=== PATIENT | male | born 1945 | race Caucasian/White ===

== ENCOUNTER 2016-07-14 13:42 | Outpatient (CLI) ==
[2015-09-23 12:33] VITALS: BMI 24.3
[2016-07-14 15:47] LABS: PROTHROMBIN TIME 13.7 SEC (9.3-11.0)
== END 2016-07-14 13:43 | disposition home or self-care (01) ==
LOC: LAB 13:42
PROVIDERS: ATTEND Emergency Medicine
DX: Z51.81 Encounter for therapeutic drug level monitoring (principal); Z79.899 Other long term (current) drug therapy
CPT/HCPCS: 36415; 85610

== ENCOUNTER 2016-12-12 11:11 | Outpatient (CLI) ==
[2015-09-23 12:33] VITALS: BMI 24.3
[2016-12-12 11:37] LABS: PROTHROMBIN TIME 12.3 SEC (9.3-11.0)
== END 2016-12-12 11:12 | disposition home or self-care (01) ==
LOC: LAB 11:11
PROVIDERS: ATTEND Internal Medicine
DX: Z51.81 Encounter for therapeutic drug level monitoring (principal); Z79.899 Other long term (current) drug therapy
CPT/HCPCS: 36415; 85610

== ENCOUNTER → 2016-12-30 | Outpatient (CLI) ==
[2015-09-23 12:33] VITALS: BMI 24.3
== END ==
LOC: LAB 13:10
PROVIDERS: ATTEND Internal Medicine
DX: E11.9 Type 2 diabetes mellitus without complications (principal); I10 Essential (primary) hypertension; E78.5 Hyperlipidemia, unspecified; M19.90 Unspecified osteoarthritis, unspecified site; I82.409 Acute embolism and thrombosis of unspecified deep veins of unspecified lower extremity

== ENCOUNTER 2017-02-10 13:21 | Outpatient (CLI) ==
[2015-09-23 12:33] VITALS: BMI 24.3
[2017-02-10 14:21] LABS: PROTHROMBIN TIME 12.9 SEC (9.3-11.0)
== END 2017-02-10 13:22 | disposition home or self-care (01) ==
LOC: LAB 13:21
PROVIDERS: ATTEND Internal Medicine
DX: I82.409 Acute embolism and thrombosis of unspecified deep veins of unspecified lower extremity (principal)
CPT/HCPCS: 36415; 85610

== ENCOUNTER 2017-04-24 10:22 | Outpatient (CLI) ==
[2015-09-23 12:33] VITALS: BMI 24.3
[2017-04-24 10:41] LABS: BASOPHILS # (AUTO) 0.1 K/uL (0-0.2); EOSINOPHILS # (AUTO) 0.2 K/ul (0.0-0.7); HEMATOCRIT 44.1 % (42.0-52.0); HEMOGLOBIN 14.7 g/dl (14.0-18.0); IMMATURE GRANULOCYTE % (AUTO) 0.5 % (0.0-5.0); LYMPHOCYTES # (AUTO) 1.8 K/uL (0.60-3.4); LYMPHOCYTES % (AUTO) 24.9 (10.0-50.0); MEAN CORPUSCULAR HEMOGLOBIN 29.6 pg (27.0-31.0); MEAN CORPUSCULAR HGB CONC 33.3 (31.8-35.4); MEAN CORPUSCULAR VOLUME 88.7 fl (80.0-94.0); MONOCYTES # (AUTO) 0.5 K/uL (0.4-2.0); MONOCYTES % (AUTO) 6.3 (0-10); NEUTROPHILS # (AUTO) 4.8 K/ul (2.0-6.9); NEUTROPHILS % (AUTO) 65.3; PLATELET COUNT 168 10^3/uL (140-440); RED BLOOD COUNT 4.97 10^6/ul (4.70-6.10); WHITE BLOOD COUNT 7.36 K/ul (4.2-10.2)
[2017-04-24 10:57] LABS: PROTHROMBIN TIME 12.5 SEC (9.3-11.0)
[2017-04-24 11:18] LABS: ALBUMIN/GLOBULIN RATIO 0.98; ANION GAP 14.5; BILIRUBIN,TOTAL 0.59 mg/dL (0.00-1.20); BUN/CREATININE RATIO 17.69; CALCIUM 10.4 mg/dL (8.2-10.2); CHOL/HDL RATIO 5.3 (4.5-6.4); CREATININE 1.3 mg/dL (0.60-1.10); POTASSIUM 4.5 mmol/L (3.5-5.1); TOTAL PROTEIN 8.1 g/dL (5.8-8.1)
== END 2017-04-24 10:23 | disposition home or self-care (01) ==
LOC: LAB 10:22
PROVIDERS: ATTEND Internal Medicine
DX: Z51.81 Encounter for therapeutic drug level monitoring (principal); Z79.01 Long term (current) use of anticoagulants; Z79.899 Other long term (current) drug therapy
CPT/HCPCS: 36415; 80053; 80061; 83036; 84443; 85025; 85610

== ENCOUNTER 2017-05-09 13:54 | Outpatient (CLI) ==
[2015-09-23 12:33] VITALS: BMI 24.3
[2017-05-09 14:17] LABS: PROTHROMBIN TIME 13.3 SEC (9.3-11.0)
== END 2017-05-09 13:55 | disposition home or self-care (01) ==
LOC: LAB 13:54
PROVIDERS: ATTEND Internal Medicine
DX: I82.409 Acute embolism and thrombosis of unspecified deep veins of unspecified lower extremity (principal)
CPT/HCPCS: 36415; 85610

== ENCOUNTER 2017-06-23 13:48 | Outpatient (CLI) | payer OTHER ==
[2015-09-23 12:33] VITALS: BMI 24.3
== END 2017-06-23 13:49 | disposition home or self-care (01) ==
LOC: LAB 13:48
PROVIDERS: ATTEND Internal Medicine
DX: I82.409 Acute embolism and thrombosis of unspecified deep veins of unspecified lower extremity (principal)
CPT/HCPCS: 36415; 85610

== ENCOUNTER 2017-06-27 15:00 | Outpatient (CLI) ==
[2015-09-23 12:33] VITALS: BMI 24.3
== END 2017-06-27 15:01 | disposition home or self-care (01) ==
LOC: LAB 15:00
PROVIDERS: ATTEND Internal Medicine
DX: I82.409 Acute embolism and thrombosis of unspecified deep veins of unspecified lower extremity (principal)
CPT/HCPCS: 36415; 85610

== ENCOUNTER 2017-08-24 14:08 | Outpatient (CLI) ==
[2015-09-23 12:33] VITALS: BMI 24.3
== END 2017-08-24 14:09 | disposition home or self-care (01) ==
LOC: LAB 14:08
PROVIDERS: ATTEND Internal Medicine
DX: Z51.81 Encounter for therapeutic drug level monitoring (principal); Z79.01 Long term (current) use of anticoagulants
CPT/HCPCS: 36415; 85610

== ENCOUNTER 2017-09-22 11:20 | Outpatient (CLI) ==
[2015-09-23 12:33] VITALS: BMI 24.3
== END 2017-09-22 11:21 | disposition home or self-care (01) ==
LOC: LAB 11:20
PROVIDERS: ATTEND Internal Medicine
DX: Z51.81 Encounter for therapeutic drug level monitoring (principal); Z79.01 Long term (current) use of anticoagulants; E11.9 Type 2 diabetes mellitus without complications; I10 Essential (primary) hypertension; J44.9 Chronic obstructive pulmonary disease, unspecified; Z79.899 Other long term (current) drug therapy
CPT/HCPCS: 36415; 80053; 80061; 83036; 84443; 85025; 85610

== ENCOUNTER 2017-10-27 09:25 | Outpatient (CLI) | payer OTHER ==
[2015-09-23 12:33] VITALS: BMI 24.3
== END 2017-10-27 09:26 | disposition home or self-care (01) ==
LOC: LAB 09:25
PROVIDERS: ATTEND Internal Medicine
DX: Z51.81 Encounter for therapeutic drug level monitoring (principal); Z79.01 Long term (current) use of anticoagulants
CPT/HCPCS: 36415; 85610

== ENCOUNTER 2017-11-13 13:26 | Outpatient (CLI) | payer OTHER ==
[2015-09-23 12:33] VITALS: BMI 24.3
--- NOTE | 2017-11-13 14:19 | DI ---
EXAM: Chest two view, frontal and lateral views. HISTORY: Cough. COMPARISON: 04/08/2016. FINDINGS: Heart size is normal. There is no vascular congestion. Apical scarring and emphysematous changes are stable. There is a 1.8 cm nodular density on the second PA image projecting over the an terior second rib which is not seen on the initial PA image. No consolidation, pleural effusion or p neumothorax identified. No acute osseous abnormality detected. Clips seen along the midline of the upper abdomen. IMPRESSION: 1. Right upper lung nodular density which could be artifactual. Follow-up radiographs in 4 weeks re commended for reassessment. 2. Stable emphysema and apical scarring.
== END 2017-11-13 13:27 | disposition home or self-care (01) ==
LOC: RAD 13:26
PROVIDERS: ATTEND Internal Medicine
DX: R05 Cough (principal); F17.210 Nicotine dependence, cigarettes, uncomplicated

== ENCOUNTER 2017-12-29 14:08 | Outpatient (CLI) | payer OTHER ==
[2015-09-23 12:33] VITALS: BMI 24.3
== END 2017-12-29 14:09 | disposition home or self-care (01) ==
LOC: LAB 14:08
PROVIDERS: ATTEND Internal Medicine
DX: Z51.81 Encounter for therapeutic drug level monitoring (principal); Z79.01 Long term (current) use of anticoagulants
CPT/HCPCS: 36415; 85610

== ENCOUNTER 2018-03-16 14:34 | Outpatient (CLI) | payer OTHER ==
[2015-09-23 12:33] VITALS: BMI 24.3
== END 2018-03-16 14:35 | disposition home or self-care (01) ==
LOC: LAB 14:34
PROVIDERS: ATTEND Internal Medicine
DX: Z51.81 Encounter for therapeutic drug level monitoring (principal); Z79.01 Long term (current) use of anticoagulants; E78.5 Hyperlipidemia, unspecified; Z12.5 Encounter for screening for malignant neoplasm of prostate; Z79.899 Other long term (current) drug therapy; I10 Essential (primary) hypertension; E11.9 Type 2 diabetes mellitus without complications
CPT/HCPCS: 36415; 80053; 80061; 80162; 83036; 84439; 84443; 85025; 85610

== ENCOUNTER 2018-03-21 10:39 | Outpatient (CLI) ==
[2015-09-23 12:33] VITALS: BMI 24.3
== END 2018-03-21 10:40 | disposition home or self-care (01) ==
LOC: LAB 10:39
PROVIDERS: ATTEND Internal Medicine
DX: E87.5 Hyperkalemia (principal)
CPT/HCPCS: 36415; 80053

== ENCOUNTER 2018-06-22 13:47 | Outpatient (CLI) ==
[2015-09-23 12:33] VITALS: BMI 24.3
== END 2018-06-22 13:48 | disposition home or self-care (01) ==
LOC: LAB 13:47
PROVIDERS: ATTEND Internal Medicine
DX: M10.9 Gout, unspecified (principal); Z79.899 Other long term (current) drug therapy
CPT/HCPCS: 36415; 80053; 84550; 85025

== ENCOUNTER 2018-07-11 13:17 | Outpatient (CLI) | payer OTHER ==
[2015-09-23 12:33] VITALS: BMI 24.3
== END 2018-07-11 13:18 | disposition home or self-care (01) ==
LOC: LAB 13:17
PROVIDERS: ATTEND Internal Medicine
DX: Z79.01 Long term (current) use of anticoagulants (principal); Z86.718 Personal history of other venous thrombosis and embolism
CPT/HCPCS: 36415; 85610

== ENCOUNTER 2018-08-23 13:13 | Outpatient (CLI) | payer OTHER ==
[2015-09-23 12:33] VITALS: BMI 24.3
== END 2018-08-23 13:14 | disposition home or self-care (01) ==
LOC: LAB 13:13
PROVIDERS: ATTEND Internal Medicine
DX: Z51.81 Encounter for therapeutic drug level monitoring (principal); Z86.718 Personal history of other venous thrombosis and embolism; Z79.01 Long term (current) use of anticoagulants
CPT/HCPCS: 36415; 85610

== ENCOUNTER 2018-10-22 19:43 | Emergency (ER) ==
[2018-10-22 19:50] VITALS: BP 187/74; TEMP 98.1; BMI 21.9
[2018-10-22] MEDS ORDERED: LIDOCAINE HCL 1% SDV SUBCUT STA (19:52)
--- NOTE | 2018-10-22 20:23 | ED.PDOC ---
General ED Provider: Dr. KAVEH SHAH-ER Chief Complaint: Fall Stated Complaint: i fell on some steps---i cut my leg Time Seen by Physician: 20:21 Mode of Arrival: Walk-In Information Source: Patient Exam Limitations: No limitations Primary Care Provider: LAUREN DELEON Nursing and Triage Documentation Reviewed and Agree: Yes Does patient meet sepsis criteria?: No System Inflammatory Response Syndrome: Not Applicable Sepsis Protocol: For patient's 13 years and over: Temp is 96.8 and below OR 101 and greater Pulse >90 BPM Resp >20/minute Acutely Altered Mental Status Are patient's symptoms suggestive of a new infection, such as: -Pneumonia -Skin, Soft Tissue -Endocarditis -UTI -Bone, Joint Infection -Implantable Device -Acute Abdominal Infection -Wound Infection -Meningitis -Blood Stream Catheter Infection -Unknown Skin Complaint Exam - Laceration/Lower Ext. Complaint/Exam Location of Injury: Left, Leg Mechanism of Injury: Laceration Onset/Duration: 30 min Symptoms Are: Still present Initial Severity: Mild Current Severity: Mild Aggravating: Movement Alleviating: Compression Associated Signs and Symptoms: Denies: Fever, Chills, Erythema, Numbness, Tingling Related History: Reports: Anticoagulant use Differential Diagnoses: Laceration Review of Systems - Review Of Systems Constitutional: Reports: No symptoms Eyes: Reports: No symptoms Ears, Nose, Mouth, Throat: Reports: No symptoms Respiratory: Reports: No symptoms Cardiac: Reports: No symptoms GI: Reports: No symptoms : Reports: No symptoms Musculoskeletal: Reports: No symptoms Skin: Reports: No symptoms Neurological: Reports: No symptoms Endocrine: Reports: No symptoms Hematologic/Lymphatic: Reports: No symptoms All Other Systems: Reviewed and Negative Past Medical History - Past Medical History Previously Healthy: No Endocrine: Reports: DM 2, Dyslipidemia Cardiovascular: Reports: CAD Respiratory: Reports: None Hematological: Reports: None Gastrointestinal: Reports: None Genitourinary: Reports: None Neuro/Psych: Reports: None Musculoskeletal: Reports: None Cancer: Reports: None - Surgical History General Surgical History: Reports: Other (AAA) - Family History Family History: Reports: Unknown - Social History Smoking Status: Current every day smoker, Heavy tobacco smoker Hx Substance Use: No Alcohol Screening: None - Immunizations Tetanus Shot up to Date: Yes Physical Exam - Physical Exam Appearance: Well-appearing, No pain distress, Well-nourished Pain Distress: Mild Eyes: STEPHANIE, EOMI, Conjunctiva clear ENT: Ears normal, Nose normal, Oropharynx normal Neck: Supple Respiratory: Airway patent, Breath sounds clear, Breath sounds equal, Respirations nonlabored Cardiovascular: RRR, Pulses normal, No rub, No murmur GI/: Soft, Nontender, No masses, Bowel sounds normal, No Organomegaly Musculoskeletal: Normal strength, ROM intact, No edema, No calf tenderness Skin: Warm, Dry, Normal color Neurological: Sensation intact, Motor intact, Reflexes intact, Cranial nerves intact, Alert, Oriented Psychiatric: Affect appropriate, Mood appropriate Interpretation - Radiology Interpretation Radiology Interpretation By: ED Physician Radiology Results: Negative Exam Interpreted: Other Procedures - Laceration/Wound Repair No standard instances Wound Description: Linear Wound Length (cm): 4cm laceration left leg below the knee Wound Explored: Clean Wound Irrigated: Yes Wound Prep: Betadine, Scrub Anesthesia: Lidocaine Wound Repaired With: Aure Number of Aure: 9 Layer Closure?: No Sterile Dressing Applied?: Yes Splint Applied?: No Sling Applied?: No Critical Care Note - Critical Care Note Total Time (mins): 0 Course - Course Orders, Labs, Meds: Orders Category Date Time Status Lidocaine HCl/Pf [Lidocaine HCl 1% Sdv] MEDS 10/22/18 19:52 Discontinued 5 ml SUBCUT ONCE STA TIBIA/FIBULA, LEFT 2 VIEWS Stat RADS 10/22/18 19:52 Taken Medications Discontinued Medications Generic Name Dose Route Start Last Admin Trade Name Sundayq PRN Reason Stop Dose Admin Lidocaine HCl 5 ml 10/22/18 19:52 10/22/18 20:18 Lidocaine Hcl 1% Sdv SUBCUT 10/22/18 19:53 5 ml ONCE STA Administration Vital Signs: Temp Pulse Resp BP Pulse Ox 10/22/18 19:44 98.1 F 90 18 187/74 H 94 L Departure - Departure Time of Disposition: 20:23 Disposition: HOME SELF-CARE Discharge Problem: Laceration of leg Qualifiers: Encounter type: initial encounter Laterality: left Qualified Code(s): S81.812A - Laceration without foreign body, left lower leg, initial encounter Instructions: Laceration (ED), Staple Care (ED) Condition: Good Pt referred to PMD for follow-up: Yes IPMP verified?: No Additional Instructions: keep clean and dry---sutures out in 7 days---call if any signs of infection Allergies/Adverse Reactions: Allergies No Known Allergies Allergy (Verified 10/22/18 19:47) Home Medications: Ambulatory Orders Digoxin 0.25 mg PO MOTUWETHFRSA 10/14/13 Gemfibrozil 600 mg PO BID 10/14/13 Glimepiride [Amaryl] 4 mg PO DAILY 10/14/13 Metformin HCl 1,000 mg BID 10/14/13 Pravastatin Sodium [Pravachol] 40 mg PO DAILY 10/14/13 Warfarin Sodium [Coumadin] 5 mg PO DAILY 10/14/13 Sitagliptin Phosphate [Januvia] 50 mg PO DAILY 09/23/15 Disposition Discussed With: Patient
--- NOTE | 2018-10-22 20:48 | DI ---
EXAM: Two views of the left tibia-fibula COMPARISON: None HISTORY: Trauma and pain FINDINGS: There is no acute fracture or dislocation. Alignment is anatomic. There are vascular diane cifications. Joint spaces are well preserved. There are no unexpected radiodensities. There is no s ignificant degenerative change. IMPRESSION: No acute osseous abnormality
== END 2018-10-22 20:34 | disposition home or self-care (01) ==
LOC: ED 19:43
DX: S81.812A Laceration without foreign body, left lower leg, initial encounter (principal); W10.9XXA Fall (on) (from) unspecified stairs and steps, initial encounter; F17.210 Nicotine dependence, cigarettes, uncomplicated
CPT/HCPCS: 99283

== ENCOUNTER 2018-10-30 15:08 | Inpatient (IN) ==
[2018-10-30] MEDS ORDERED: VISTARIL INJ IM PRN (15:29)
[2018-10-30] MEDS ORDERED: NITROSTAT SL PRN (15:29)
[2018-10-30] MEDS ORDERED: TYLENOL PO PRN (15:29)
[2018-10-30] MEDS ORDERED: ATROPINE SULFATE PFS IVP PRN (15:29)
[2018-10-30 15:56] VITALS: BMI 20.6
--- NOTE | 2018-10-30 16:16 | DI ---
EXAM: Chest two views HISTORY: Shortness of breath COMPARISON: 11/13/2017 TECHNIQUE: Two views of the chest were performed FINDINGS: Emphysematous change. Biapical scarring. No definite consolidation. There is no pleural effusion or pneumothorax. The heart is normal in size. The mediastinal contour is normal. There a re no acute abnormalities of the bones. IMPRESSION: Emphysema. No definite acute cardiopulmonary process.
[2018-10-30] MEDS ORDERED: NORCO 5-325 PO STA (16:21)
[2018-10-30] MEDS: SODIUM CHLORIDE 1,000 ML IV SCH (16:39)
[2018-10-30] MEDS: ROCEPHIN 1 GM in SODIUM CHLORIDE 50 ML IV SCH (16:39)
[2018-10-30] MEDS: TORADOL IVP SCH ×2 (16:39→21:12)
[2018-10-30] MEDS ORDERED: DIGOXIN 0.25 MG PO SCH (16:45)
[2018-10-30] MEDS ORDERED: PROAIR HFA IH PRN (16:45)
--- NOTE | 2018-10-30 17:04 | US ---
EXAM: Ultrasound venous Doppler right and left lower extermity HISTORY: Injury COMPARISON: None TECHNIQUE: Venous duplex ultrasound of the right and left lower extremity was performed using color, seals-scale, and Doppler flow imaging. FINDINGS: Small area of chronic-appearing nonocclusive deep venous thrombus left femoral vein with ec hogenic calcification. There is normal color flow and compression of the right and left common femor al, greater saphenous, profunda femoral, (right) femoral, popliteal, peroneal, and posterior tibial v eins without evidence of intraluminal thrombus. Anterior tibial veins not visualized bilaterally. IMPRESSION: 1. Small area of chronic-appearing nonocclusive deep venous thrombus left femoral vein. 2. No right lower extremity deep venous thrombus. Finding called to inpatient nurse 4:59 p.m. 10/30/2018
[2018-10-30] MEDS: CLEOCIN 600 MG in SODIUM CHLORIDE 50 ML IV SCH (21:11)
[2018-10-31] MEDS: CLEOCIN 600 MG in SODIUM CHLORIDE 50 ML IV SCH ×3 (04:47→20:45)
[2018-10-31] MEDS: SODIUM CHLORIDE 1,000 ML IV SCH (04:47)
[2018-10-31] MEDS: TORADOL IVP SCH ×3 (04:47→20:45)
[2018-10-31] MEDS: TRADJENTA PO SCH (08:44)
[2018-10-31] MEDS: PRAVACHOL PO SCH (08:44)
[2018-10-31] MEDS: ASPIRIN EC PO SCH (08:44)
[2018-10-31] MEDS: ROCEPHIN 1 GM in SODIUM CHLORIDE 50 ML IV SCH (08:44)
[2018-10-31] MEDS: ZESTRIL PO SCH (08:44)
[2018-10-31] MEDS: LANOXIN PO SCH (08:45)
[2018-10-31] MEDS: GLUCOPHAGE PO SCH (08:45)
[2018-10-31] MEDS: BACTROBAN TP SCH ×2 (08:46→20:45)
--- NOTE | 2018-10-31 08:54 | PCM.PROG ---
Attending Provider: ATTENDING PROVIDER: Dr. LAUREN DELEON This patient is seen with Rosario Rodriguez, Nurse Practitioner. DATE OF SERVICE: 10/31/18 SUBJECTIVE: This 73 year old WHITE/ M was hospitalized 10/30/18. The patient is sitting up in bed resting comfortably. Left leg edema has improved, redness slightly improved. Aure removed, no drainage. Venous scan showed chronic nonocclusive DVT to left femoral vein. The patient is eating well. No fever. REVIEW OF SYSTEMS: CONSTITUTIONAL: No night sweats. No fatigue, malaise, lethargy. No fever or chills. HEENT: Eyes: No visual changes. No eye pain. No eye discharge. ENT: No runny nose. No epistaxis. No sinus pain. No odynophagia. No congestion. RESPIRATORY: No cough, no congestion. No hemoptysis. No shortness of breath. CARDIOVASCULAR: No angina symptoms. No CHF symptoms. No atypical chest pain for CAD. No palpitations. No orthopnea.. GASTROINTESTINAL: No abdominal pain. No nausea or vomiting. No diarrhea or constipation. No hematemesis. No hematochezia. GENITOURINARY: No urgency. No frequency. No dysuria. No hematuria. No obstructive symptoms. No discharge. No pain. No significant abnormal bleeding. MUSCULOSKELETAL: No musculoskeletal pain; no joint swelling. NEUROLOGICAL: Awake, alert, oriented to time, place and person. No headache. No neck pain. No syncope. No seizures. No dizziness. PSYCHIATRIC: Not anxious. No depression. No suicidal thoughts. No homicidal thoughts. SKIN: Leg edema and redness. ENDOCRINE: No unexplained weight loss. No weight gain. HEMATOLOGIC/LYMPHATIC: No anemia. No purpura. No petechiae. No prolonged or excessive bleeding. No palpable lymph nodes. PHYSICAL EXAMINATION: GENERAL: The patient is awake, alert and oriented, sitting in bed in no distress. VITAL SIGNS: Temperature 97.9 F, Pulse 62, Respiratory Rate 16, BP 135/77, Pulse Ox 95% HEENT: Head normocephalic, atraumatic. Eyes: Extraocular muscles are intact. Pupils are equal, round and reactive to light and accommodation. Ears: No lesions. Nose appeared normal. Throat: No exudate or erythema. NECK: Supple. No JVD, no carotid bruit. No lymphadenopathy or thyromegaly. LUNGS: Diminished breath sounds. Clear to auscultation. Percussion note normal. Chest symmetrical. HEART: S1, S2, no S3. No murmurs. No cyanosis or clubbing. No ascites. Pulses: Dorsalis pedis and posterior tibial pulses +1 to +2 both sides. ABDOMEN: Soft. Non-tender. Bowel sounds active. No CVA tenderness. No mass felt. EXTREMITIES: Left leg trace pedal edema. Erythema from ankle to knee slightly improving, mild tenderness with scant drainage. Full range of motion of all extremities, equal. NEUROLOGIC: No focal deficit. Cranial nerves II through XII are grossly intact. No headache, no double vision or headache. SKIN: Not dry. Intact. Turgor-normal. LYMPHATIC: No palpable lymph nodes/no lymphedema. MUSCULOSKELETAL: Normal joints with no swelling. Muscle tone is normal. LAB REVIEW: 10/31/18 05:20 10/31/18 05:20 10/31/18 05:20: Sodium 139.0, Potassium 4.74, Chloride 106.2, Carbon Dioxide 24.5, Anion Gap 13.04, BUN 23.1 H, Creatinine 1.10, Estimated GFR (MDRD) 66.00, BUN/Creatinine Ratio 21.00, Glucose 103.5, Calcium 8.91, Total Bilirubin 0.55, AST 23.0, ALT 11.0, Alkaline Phosphatase 53.9 L, Total Protein 6.90, Albumin 4.01, Globulin 2.89, Albumin/Globulin Ratio 1.38 10/31/18 05:20: PT 18.0 H, INR 1.83 10/31/18 05:20: WBC 6.76, RBC 4.43 L, Hgb 12.6 L, Hct 39.7 L, MCV 89.6, MCH 28.4 , MCHC 31.7 L, RDW Coeff of Rebeca 13.2, Plt Count 171, Immature Gran % (Auto) 0.3 , Neut % (Auto) 49.6, Lymph % (Auto) 38.6, [place] % (Auto) 7.8, Eos % (Auto) 2.8, Baso % (Auto) 0.9, Immature Gran # (Auto) 0.0, Neut # (Auto) 3.4, Lymph # (Auto ) 2.6, [place] # (Auto) 0.5, Eos # (Auto) 0.2, Baso # (Auto) 0.1 10/30/18 23:10: Total Creatine Kinase 46.3 L, Troponin I < 0.012 10/30/18 21:00: Urine Color Yellow, Urine Clarity Clear, Urine pH 5.0, Ur Specific [place] >=1.030, Urine Protein 1+, Urine Glucose (UA) Negative, Urine Ketones Negative, Urine Blood Negative, Urine Nitrite Negative, Urine Bilirubin Negative, Urine Urobilinogen 0.2, Ur Leukocyte Esterase Negative, Urine Microscopic WBC 0-2, Ur Squamous Epith Cells 0-2, Ur Renal Epithelial Cell 0-2, Amorphous Sediment Trace, Hyaline Casts 2-5 10/30/18 17:00: PT 17.6 H, INR 1.79 10/30/18 17:00: Sodium 137.0, Potassium 4.78, Chloride 103.4, Carbon Dioxide 24.9, Anion Gap 13.48, BUN 17.6, Creatinine 1.11 H, Estimated GFR (MDRD) 65.00, BUN/Creatinine Ratio 15.85, Glucose 114.9 H, Calcium 9.32, Total Bilirubin 0.68 , AST 19.2, ALT 12.3, Alkaline Phosphatase 60.2, Total Creatine Kinase 45.8 L, Troponin I < 0.012, Total Protein 7.77, Albumin 4.49, Globulin 3.28, Albumin/ Globulin Ratio 1.36 10/30/18 17:00: WBC 7.58, RBC 4.63 L, Hgb 13.4 L, Hct 41.4 L, MCV 89.4, MCH 28.9 , MCHC 32.4, RDW Coeff of Rebeca 13.2, Plt Count 181, Immature Gran % (Auto) 0.3, Neut % (Auto) 65.2, Lymph % (Auto) 23.2, [place] % (Auto) 8.6, Eos % (Auto) 2.0, Baso % (Auto) 0.7, Immature Gran # (Auto) 0.0, Neut # (Auto) 5.0, Lymph # (Auto ) 1.8, [place] # (Auto) 0.7, Eos # (Auto) 0.2, Baso # (Auto) 0.1 ASSESSMENT: 1. Left lower extremity cellulitis, laceration left lower extremity infected. 2. Chronic nonocclusive DVT left femoral. 3. History of DVT. 4. Smoker. PLAN: 1. Decrease IV fluids decreased to 50. 2. Wound culture. 3. Bactroban twice a day. 4. Hold labs tomorrow. 5. Will give an extra 5 mg of Coumadin today. Plan and coordination of the patient's care discussed in the presence of Cosmetic Assembler and nurse. CONDITION: Stable SCRIBED BY: KAROLINE LIGHT [employer] scribed while in presence of service performed by Dr. Deleon/Rosario Rodriguez APRN on 10/31/18 ([id number])
[2018-10-31] MEDS ORDERED: NON-FORMULARY MEDICATION (Metformin Hcl [Metformin Hcl] 1,000 MG) PO SCH (09:00)
[2018-10-31] MEDS ORDERED: COUMADIN PO ONE ×2 (09:00→17:00)
[2018-10-31] MEDS ORDERED: COUMADIN PO SCH (17:00)
[2018-11-01] MEDS: CLEOCIN 600 MG in SODIUM CHLORIDE 50 ML IV SCH ×3 (04:38→21:08)
[2018-11-01] MEDS: TORADOL IVP SCH ×3 (04:38→21:08)
[2018-11-01] MEDS: SODIUM CHLORIDE 1,000 ML IV SCH ×2 (04:46→08:27)
[2018-11-01] MEDS: ROCEPHIN 1 GM in SODIUM CHLORIDE 50 ML IV SCH (08:26)
[2018-11-01] MEDS: ASPIRIN EC PO SCH (08:26)
[2018-11-01] MEDS: PRAVACHOL PO SCH (08:26)
[2018-11-01] MEDS: ZESTRIL PO SCH (08:26)
[2018-11-01] MEDS: TRADJENTA PO SCH (08:26)
[2018-11-01] MEDS: BACTROBAN TP SCH ×2 (08:26→21:07)
[2018-11-01] MEDS: GLUCOPHAGE PO SCH (08:27)
[2018-11-01] MEDS: LANOXIN PO SCH (08:31)
--- NOTE | 2018-11-01 09:36 | PCM.PROG ---
Attending Provider: ATTENDING PROVIDER: Dr. LAUREN DELEON This patient is seen with Rosario Rodriguez, Nurse Practitioner. DATE OF SERVICE: 11/01/18 SUBJECTIVE: This 73 year old WHITE/ M was hospitalized 10/30/18. The patient is lying in bed resting comfortably. Left lower extremity swelling and redness significantly improved. Wound culture still pending. REVIEW OF SYSTEMS: CONSTITUTIONAL: No night sweats. No fatigue, malaise, lethargy. No fever or chills. HEENT: Eyes: No visual changes. No eye pain. No eye discharge. ENT: No runny nose. No epistaxis. No sinus pain. No odynophagia. No congestion. RESPIRATORY: No cough, no congestion. No hemoptysis. No shortness of breath. CARDIOVASCULAR: No angina symptoms. No CHF symptoms. No atypical chest pain for CAD. No palpitations. No orthopnea.. GASTROINTESTINAL: No abdominal pain. No nausea or vomiting. No diarrhea or constipation. No hematemesis. No hematochezia. GENITOURINARY: No urgency. No frequency. No dysuria. No hematuria. No obstructive symptoms. No discharge. No pain. No significant abnormal bleeding. MUSCULOSKELETAL: No musculoskeletal pain; no joint swelling. NEUROLOGICAL: Awake, alert, oriented to time, place and person. No headache. No neck pain. No syncope. No seizures. No dizziness. PSYCHIATRIC: Not anxious. No depression. No suicidal thoughts. No homicidal thoughts. SKIN: Left leg redness. ENDOCRINE: No unexplained weight loss. No weight gain. HEMATOLOGIC/LYMPHATIC: No anemia. No purpura. No petechiae. No prolonged or excessive bleeding. No palpable lymph nodes. PHYSICAL EXAMINATION: GENERAL: The patient is awake, alert and oriented, lying in bed in no distress. VITAL SIGNS: Temperature 98.2 F, Pulse 79, Respiratory Rate 18, BP 138/79, Pulse Ox 95% HEENT: Head normocephalic, atraumatic. Eyes: Extraocular muscles are intact. Pupils are equal, round and reactive to light and accommodation. Ears: No lesions. Nose appeared normal. Throat: No exudate or erythema. NECK: Supple. No JVD, no carotid bruit. No lymphadenopathy or thyromegaly. LUNGS: Diminished breath sounds. Clear to auscultation. Percussion note normal. Chest symmetrical. HEART: S1, S2, no S3. No murmurs. No cyanosis or clubbing. No ascites. Pulses: Dorsalis pedis and posterior tibial pulses +1 to +2 both sides. ABDOMEN: Soft. Non-tender. Bowel sounds active. No CVA tenderness. No mass felt. EXTREMITIES: Improving erythema left lower leg, no swelling. Full range of motion of all extremities, equal. NEUROLOGIC: No focal deficit. Cranial nerves II through XII are grossly intact. No headache, no double vision or headache. SKIN: Not dry. Intact. Turgor-normal. LYMPHATIC: No palpable lymph nodes/no lymphedema. MUSCULOSKELETAL: Normal joints with no swelling. Muscle tone is normal. LAB REVIEW: 10/31/18 05:20 10/31/18 05:20 ASSESSMENT: 1. Left lower extremity cellulitis. improving, laceration left lower extremity infected. 2. Chronic nonocclusive DVT left femoral. 3. History of DVT. 4. Smoker. PLAN: 1. D/C telemetry. 2. D/C IV fluids. Plan and coordination of the patient's care discussed in the presence of Insole Lip Turner and nurse. CONDITION: Stable SCRIBED BY: KAROLINE LIGHT Tool Analyst scribed while in presence of service performed by Dr. Deleon/Rosario Rodriguez APRN on 11/01/18 ([id number])
[2018-11-01] MEDS ORDERED: COUMADIN PO SCH (17:00)
[2018-11-02] MEDS: TORADOL IVP SCH ×2 (04:25→13:44)
[2018-11-02] MEDS: CLEOCIN 600 MG in SODIUM CHLORIDE 50 ML IV SCH ×2 (04:25→12:45)
[2018-11-02 06:08] VITALS: BP 131/74; TEMP 98
--- NOTE | 2018-11-02 07:47 | HP ---
DATE OF SERVICE: 10/30/18 REASON FOR HOSPITALIZATION/HISTORY OF PRESENT ILLNESS: 73 year old male fell from porch one week ago. He has a laceration on the left leg with 9 danis. The area is tender, red with purulent drainage. Can't walk hardly. PAST MEDICAL HISTORY: Gout Diabetes Mellitus type 2 Chronic kidney disease stage 3 Hypertension Osteoarthritis Dyslipidemia History of DVT COPD PAD PAST SURGICAL HISTORY: Aneurysm 1998 REVIEW OF SYSTEMS: CONSTITUTIONAL: No fever, no fatigue. HEENT: No sinus drainage, no sore throat. RESPIRATORY: No cough, no congestion. CARDIOVASCULAR: No atypical chest pain for coronary artery disease. No angina , CHF symptoms, palpitations or shortness of breath. GASTROINTESTINAL: No melena or abdominal pain. No GERD. GENITOURINARY: No hematuria, no prostatism, no polyuria. DRUG DISCOVERY INFORMATICS SPECIALIST: No blackout, no dizziness, no headache, no double vision. GAIT: Limping MUSCULOSKELETAL: No osteoarthritis pain, no joint swelling. ENDOCRINE: No weight loss, no weight gain. SKIN: Not dry, Laceration. PSYCHIATRIC: Not anxious, no depression, no suicidal thoughts, no homicidal thoughts. SOCIAL HISTORY: Marital Status: . Alcohol Usage: No. Tobacco Usage: Yes, e-cigarette. FAMILY HISTORY: Father Mother Brother 3 Sister 2 MEDICATIONS: [place] 7.5-325mg three times a day PRN for pain Tradjenta 5mg PO daily Pravastatin 20mg Po daily Coumadin 5mg PO daily Nasonex 2 sprays daily PRN Digoxin 0.125mg Po daily Lisinopril 5mg PO daily Metformin 100mg PO twice a day ProAir HFA four times a day PRN Clotrimazole/Betamethasone 1%/0.05 cream Ventolin HFA four times a day PRN ALLERGIES: No known allergies PHYSICAL EXAMINATION: V/S: Pulse 93, blood pressure 130/70, temperature 98.2 and pulse ox 95%. Height 6'5, BMI 22 and weight 185.8. GENERAL APPEARANCE: Oriented times three. HEENT: Normal. NECK: No JVP, no bruits. RESPIRATORY: Decreased breath sounds. CARDIOVASCULAR: S1, S2, no S3, no murmurs. No cyanosis, clubbing. No ascites. GI/ABDOMEN: No tenderness. Bowel sounds are active. EXTREMITIES: edema, pulses +1, equal. Left lower extremity laceration purulent drainage, redness from foot to knee DRUG DISCOVERY INFORMATICS SPECIALIST: Deep tendon reflexes, sensory, motor and gait all normal. RECTAL: refused repeat/PROSTATE: 10-18 (1.3). LABS: WBC 7.5, hgb 13.4, hct 41.4, plt count 181, sodium 137, potassium 4.7, BUN 17, creatinine 1.11, glucose 114, INR 1.7. Bilateral venous scan showed small chronic appearing nonocclusive DVT of the left femoral vein. ASSESSMENT: 1. Cellulitis left lower extremity 2. Laceration left lower extremity 3. History of DVT on Coumadin 4. Gout left greater toe 5. History of hyperkalemia 6. Diabetes Mellitus A1C 10-18 (6.66) 7. Chronic kidney disease 8. Hypertension 9. Osteoarthritis 10. Dyslipidemia 11.DJD 12.PAD 13.COPD 14.Right hip pain PLAN: 1. Admit 2. Routine telemetry 3. CBC, CMP and INR now and daily 4. Normal saline IV at 75cc an hour 5. Bilateral venous scan now lower extremity 6. Continue home medications 7. Toradol 30mg IV Q 8 hours 8. Elevate legs 9. Keep left leg open to air 10.Nicotine patch if needed 11.Rocephin 1 gram IV daily 12.Clindamycin 600mg IV Q 8 hours 13.Diabetic diet 14.Chest x-ray TIME SPENT: More than 70 minutes. MTDD
[2018-11-02] MEDS: TRADJENTA PO SCH (09:07)
[2018-11-02] MEDS: ROCEPHIN 1 GM in SODIUM CHLORIDE 50 ML IV SCH (09:07)
[2018-11-02] MEDS: LANOXIN PO SCH (09:08)
[2018-11-02] MEDS: ZESTRIL PO SCH (09:08)
[2018-11-02] MEDS: ASPIRIN EC PO SCH (09:08)
[2018-11-02] MEDS: PRAVACHOL PO SCH (09:08)
[2018-11-02] MEDS: GLUCOPHAGE PO SCH (09:09)
[2018-11-02] MEDS: BACTROBAN TP SCH (09:11)
--- NOTE | 2018-11-02 09:16 | PCM.PROG ---
Attending Provider: ATTENDING PROVIDER: Dr. LAUREN DELEON This patient is seen with Rosario Rodriguez, Nurse Practitioner. DATE OF SERVICE: 11/02/18 SUBJECTIVE: This 73 year old WHITE/ M was hospitalized 10/30/18. The patient is sitting in bed resting comfortably. Redness is slightly improved with scant serous drainage this morning. Swelling has resolved. The pain has significantly improved. REVIEW OF SYSTEMS: CONSTITUTIONAL: No night sweats. No fatigue, malaise, lethargy. No fever or chills. HEENT: Eyes: No visual changes. No eye pain. No eye discharge. ENT: No runny nose. No epistaxis. No sinus pain. No odynophagia. No congestion. RESPIRATORY: No cough, no congestion. No hemoptysis. No shortness of breath. CARDIOVASCULAR: No angina symptoms. No CHF symptoms. No atypical chest pain for CAD. No palpitations. No orthopnea.. GASTROINTESTINAL: No abdominal pain. No nausea or vomiting. No diarrhea or constipation. No hematemesis. No hematochezia. GENITOURINARY: No urgency. No frequency. No dysuria. No hematuria. No obstructive symptoms. No discharge. No pain. No significant abnormal bleeding. MUSCULOSKELETAL: Back pain. NEUROLOGICAL: Awake, alert, oriented to time, place and person. No headache. No neck pain. No syncope. No seizures. No dizziness. PSYCHIATRIC: Not anxious. No depression. No suicidal thoughts. No homicidal thoughts. SKIN: No rash. Left leg infected. ENDOCRINE: No unexplained weight loss. No weight gain. HEMATOLOGIC/LYMPHATIC: No anemia. No purpura. No petechiae. No prolonged or excessive bleeding. No palpable lymph nodes. PHYSICAL EXAMINATION: GENERAL: The patient is awake, alert and oriented, sitting in bed in no distress. VITAL SIGNS: Temperature 98.0 F, Pulse 74, Respiratory Rate 18, BP 131/74, Pulse Ox 97% HEENT: Head normocephalic, atraumatic. Eyes: Extraocular muscles are intact. Pupils are equal, round and reactive to light and accommodation. Ears: No lesions. Nose appeared normal. Throat: No exudate or erythema. NECK: Supple. No JVD, no carotid bruit. No lymphadenopathy or thyromegaly. LUNGS: Diminished breath sounds. Clear to auscultation. Percussion note normal. Chest symmetrical. HEART: S1, S2, no S3. No murmurs. No cyanosis or clubbing. No ascites. Pulses: Dorsalis pedis and posterior tibial pulses +1 to +2 both sides. ABDOMEN: Soft. Non-tender. Bowel sounds active. No CVA tenderness. No mass felt. EXTREMITIES: Left lower extremity improved, erythema with scant serous drainage at the base of laceration. Improving tenderness, no swelling. Full range of motion of all extremities, equal. NEUROLOGIC: No focal deficit. Cranial nerves II through XII are grossly intact. No headache, no double vision or headache. SKIN: Not dry. Intact. Turgor-normal. LYMPHATIC: No palpable lymph nodes/no lymphedema. MUSCULOSKELETAL: Normal joints with no swelling. Muscle tone is normal. LAB REVIEW: 11/02/18 05:40 11/02/18 05:40 11/02/18 05:40: Sodium 139.2, Potassium 4.53, Chloride 106.9, Carbon Dioxide 20.2 L, Anion Gap 16.63, BUN 21.0 H, Creatinine 0.91, Estimated GFR (MDRD) 82.00 , BUN/Creatinine Ratio 23.07, Glucose 122.6 H, Calcium 9.18, Total Bilirubin 0.58, AST 21.2, ALT 14.8, Alkaline Phosphatase 53.9 L, Total Protein 7.11, Albumin 4.14, Globulin 2.97, Albumin/Globulin Ratio 1.39 11/02/18 05:40: PT 20.6 H, INR 2.11 11/02/18 05:40: WBC 6.41, RBC 4.37 L, Hgb 12.8 L, Hct 39.8 L, MCV 91.1, MCH 29.3 , MCHC 32.2, RDW Coeff of Rebeca 13.1, Plt Count 182, Immature Gran % (Auto) 0.2, Neut % (Auto) 60.9, Lymph % (Auto) 27.0, [place] % (Auto) 8.1, Eos % (Auto) 3.0, Baso % (Auto) 0.8, Immature Gran # (Auto) 0.0, Neut # (Auto) 3.9, Lymph # (Auto ) 1.7, [place] # (Auto) 0.5, Eos # (Auto) 0.2, Baso # (Auto) 0.1 ASSESSMENT: Please see below. 1. Left lower extremity cellulitis. improving, laceration left lower extremity infected. 2. Chronic nonocclusive DVT left femoral. 3. History of DVT. 4. Smoker. PLAN: 1. Reculture scant drainage. 2. Continue IV antibiotics. 3. Possible discharge home today. Plan and coordination of the patient's care discussed in the presence of Senior Technical Analyst and nurse. CONDITION: Stable SCRIBED BY: KAROLINE LIGHT Nutrition Counselor scribed while in presence of service performed by Dr. Deleon/Rosario Rodriguez APRN on 11/02/18 ([id number])
--- NOTE | 2018-11-02 11:03 | CM.DICTOOL ---
ADMISSION: 10/30/18 15:08 DISCHARGE: 11/02/2018 DATE OF SERVICE: 11/02/18 FINAL DIAGNOSIS ACUTE CELLULITIS, LLE, IMPROVING LACERATION, LLE, HEALING, SCANT SEROUS DRAINAGE CHRONIC NONOCLUSIVE DVT LEFT FEMORAL IRREGULAR HR HYPERTENSION PERIPHERAL ARTERIAL DISEASE DYSLIPIDEMIA COPD HYPERKALEMIA GOUT LFT GREAT TOE DIABETES MELLITUS TYPE 2 CHRONIC KIDNEY DISEASE STAGE 3 OSTEOARTHRITIS DEJENERATIVE JOINT DISEASE RIGHT HIP PAIN CURRENT SMOKER LAST VITALS Temp Pulse Resp BP Pulse Ox 98.0 F 80 18 131/74 97 11/02/18 06:00 11/02/18 09:08 11/02/18 06:00 11/02/18 06:00 11/02/18 06:00 TAKE THESE MEDICATIONS AT HOME Albuterol Sulfate (Ventolin Hfa) 2 puff IH 2-4XD PRN PRN Reason: Asthma Aspirin (Aspirin Ec) 81 mg PO DAILYWM [facility] Last Admin: 11/02/18 09:08 Dose: 81 mg Digoxin (Lanoxin) 125 mcg PO MoTuWeThFrSa@0900 [facility] Last Admin: 11/02/18 09:08 Dose: 125 mcg Linagliptin (Tradjenta) 5 mg PO DAILY [facility] Last Admin: 11/02/18 09:07 Dose: 5 mg Lisinopril (Zestril) 5 mg PO DAILY [facility] Last Admin: 11/02/18 09:08 Dose: 5 mg Metformin HCl (Glucophage) 1,000 mg PO DAILYWM [facility] Last Admin: 11/02/18 09:09 Dose: 1,000 mg Mupirocin (Bactroban) 1 applic TP BID [facility] Stop: 11/03/18 08:59 Last Admin: 11/02/18 09:11 Dose: 1 applic Pravastatin Sodium (Pravachol) 40 mg PO DAILY [facility] Last Admin: 11/02/18 09:08 Dose: 40 mg Warfarin Sodium (Coumadin) 5 mg PO QPM [facility] Last Admin: 11/01/18 16:39 Dose: 5 mg ALLERGIES No Known Allergies Allergy (Verified 10/22/18 19:47) DISCONTINUED MEDICATIONS NONE NEW PRESCRIPTIONS: ASPIRIN 81MG PO QDAY CLEOCIN 300MG PO TID X5 DAYS OMNICEF 300MG PO BID X10 DAYS BACTROBAN OINTMENT APPLY THIN FILM TO LACERATION BID SMOKING: CURRENT EVERY DAY SMOKER DISCUSSED IMPORTANCE OF SMOKING CESSATION, NOT ONLY FOR GENERALIZED HEALTH, BUT TO ASSIST WITH CURRENT ACUTE HEALING PROCESSES. DISEASE SPECIFIC EDUCATION: SMOKING CESSATION CELLULITUS DVT MEDICATIONS DIABETIC ADA DIET FOLLOW-UP APPOINTMENT LAB REVIEW: 11/02/18 05:40 11/02/18 05:40 11/02/18 05:40: Sodium 139.2, Potassium 4.53, Chloride 106.9, Carbon Dioxide 20.2 L, Anion Gap 16.63, BUN 21.0 H, Creatinine 0.91, Estimated GFR (MDRD) 82.00 , BUN/Creatinine Ratio 23.07, Glucose 122.6 H, Calcium 9.18, Total Bilirubin 0.58, AST 21.2, ALT 14.8, Alkaline Phosphatase 53.9 L, Total Protein 7.11, Albumin 4.14, Globulin 2.97, Albumin/Globulin Ratio 1.39 11/02/18 05:40: PT 20.6 H, INR 2.11 11/02/18 05:40: WBC 6.41, RBC 4.37 L, Hgb 12.8 L, Hct 39.8 L, MCV 91.1, MCH 29.3 , MCHC 32.2, RDW Coeff of Rebeca 13.1, Plt Count 182, Immature Gran % (Auto) 0.2, Neut % (Auto) 60.9, Lymph % (Auto) 27.0, [place] % (Auto) 8.1, Eos % (Auto) 3.0, Baso % (Auto) 0.8, Immature Gran # (Auto) 0.0, Neut # (Auto) 3.9, Lymph # (Auto ) 1.7, [place] # (Auto) 0.5, Eos # (Auto) 0.2, Baso # (Auto) 0.1 PLAN: DISCHARGE HOME TODAY, 11/01/2018. DIET: DIABETIC 2000 KIKO ADA DIET ACTIVITY: INDEPENDENT, UP TOLERATED FOLLOW-UP APPOINTMENTS: DR. DELEON MONDAY NOVEMBER 05, 2018 @ 2:30PM CODE STATUS: FULL CODE MR. YUAN IS ALERT AND ORIENTED X3, HE IS AGREEABLE WITH THE PLAN TO DISCHARGE HOME TODAY. PLAN TO FOLLOW UP WITH ME IN THE OFFICE ON MONDAY. COUNSELLED TO KEEP LEGS ELEVATED WITH LACERATION OPEN TO AIR. KEEP CLEAN AND DRY, WASH WITH DIAL SOAP AND WATER, APPLY THIN FILM OF BACTROBAN OINT TO LACERATION TWICE DAILY. WHEN ACTIVE, MAY WEAR COTTON SOCKS AND APPLY DRY DRESSING WITH PAPER TAPE. LIMIT DEPENDENT ACTIVITY TO TWO HOURS AT A TIME. DISCUSSED IMPORTANCE OF SMOKING CESSATION RELATED TO GENERAL HEALTH CONCERNS AND ACUTE HEALING PROCESS. ENCOURAGED TO MONITOR DIET AND BLOOD GLUCOSE THIS DIRECTLY IMPACTS HEALING WELL. HE HAS BEEN AFEBRILE, ERYTHEMA IS IMPROVING, EDEMA HAS RESOLVED , LACERATION IS HEALING AND SCABBED OVER. SCANT SEROUS DRAINAGE NOTED TO BASE OF LACERATION - RE-CULTURED TODAY. BREATH SOUNDS ARE CLEAR AND DIMINISHED. ABDOMEN SOFT AND NON-TENDER - HE HAS HAD A GOOD APPETITE. HYDRATION STATUS IS GOOD, SKIN INTACT WITH HEALING SCABBED LACERATION. MD SATYA BERMUDEZ, DAM TENDER ASSISTANT
--- NOTE | 2018-11-02 14:07 | DS ---
DATE OF SERVICE: 11/02/18 FINAL DIAGNOSIS: 1.ACUTE CELLULITIS, LLE, IMPROVING 2.LACERATION, LLE, HEALING, SCANT SEROUS DRAINAGE 3.CHRONIC NONOCCLUSIVE DVT LEFT FEMORAL 4.IRREGULAR HR 5.HYPERTENSION 6.PERIPHERAL ARTERIAL DISEASE 7.DYSLIPIDEMIA 8.COPD 9.HYPERKALEMIA 10.GOUT LFT GREAT TOE 11.DIABETES MELLITUS TYPE 2 12.CHRONIC KIDNEY DISEASE STAGE 3 13.OSTEOARTHRITIS 14.DEGENERATIVE JOINT DISEASE 15.RIGHT HIP PAIN 16.CURRENT SMOKER LAST VITALS: Temp Pulse Resp BP Pulse Ox 98.0 F 80 18 131/74 97 11/02/18 06:00 11/02/18 09:08 11/02/18 06:00 11/02/18 06:00 11/02/18 06:00 DISCHARGE INSTRUCTIONS: DISCHARGE HOME TODAY, 11/01/2018. CODE STATUS: FULL CODE FOLLOW-UP APPOINTMENTS: DR. DELEON MONDAY NOVEMBER 05, 2018 @ 2:30PM TAKE THESE MEDICATIONS AT HOME: Albuterol Sulfate (Ventolin Hfa) 2 puff IH 2-4XD PRN Aspirin (Aspirin Ec) 81 mg PO DAILYWM [facility] Digoxin (Lanoxin) 125 mcg PO MoTuWeThFrSa@0900 [facility] Linagliptin (Tradjenta) 5 mg PO DAILY DEL Lisinopril (Zestril) 5 mg PO DAILY DEL Metformin HCl (Glucophage) 1,000 mg PO DAILYWM [facility] Mupirocin (Bactroban) 1 applic TP BID [facility] Pravastatin Sodium (Pravachol) 40 mg PO DAILY DEL Warfarin Sodium (Coumadin) 5 mg PO QPM [facility] ALLERGIES: No Known Allergies Allergy (Verified 10/22/18 19:47) DISCONTINUED MEDICATIONS: NONE NEW PRESCRIPTIONS: ASPIRIN 81MG PO QDAY CLEOCIN 300MG PO TID X5 DAYS OMNICEF 300MG PO BID X10 DAYS BACTROBAN OINTMENT APPLY THIN FILM TO LACERATION BID SMOKING: CURRENT EVERY DAY SMOKER DISCUSSED IMPORTANCE OF SMOKING CESSATION, NOT ONLY FOR GENERALIZED HEALTH, BUT TO ASSIST WITH CURRENT ACUTE HEALING PROCESSES. DISEASE SPECIFIC EDUCATION: SMOKING CESSATION CELLULITIS DVT MEDICATIONS DIABETIC ADA DIET FOLLOW-UP APPOINTMENT DIET: DIABETIC 2000 KIKO ADA DIET ACTIVITY: INDEPENDENT, UP TOLERATED HOSPITAL COURSE: 73 year old white male who presented to our office on 10/30/18 for staple removal in his left lower extremity. He stated that he had gone to the emergency room about a week before after experiencing a fall and having a laceration to his leg, they placed 9 aure. He reported in the office that he was having increased pain and swelling of the left lower extremity. After undressing the wound it would found that his left lower extremity was swollen from his foot all the way up to his left knee. He had erythema from the bottom of this knee to the dorsal aspect of his foot. He was admitted with acute cellulitis of the left lower extremity and place on Clindamycin 600mg IV Q 8 hours along with Rocephin 1 gram IV daily. Aure were removed. He did have some scant purulent drainage at first which was cultured. There is no pertinent microorganism. Bilateral venous scan showed that he had a chronic nonocclusive DVT of the left femoral vein again which is chronic. He is already on Coumadin. Initial INR on admission was 1.8. I did increase his Coumadin and did 10mg at night on admission and then subsequently his INR has been 2-3. Digoxin level was done for good measure which was therapeutic. Over the course of the past several days erythema has significantly improved. We have been doing Bactroban twice a day along with keeping the leg elevated. The swelling is gone and his pain has significantly improved. We do believe that he is stable for discharge. He will continue the Bactroban ointment at home. Leave the wound clean and open to air. He will Clindamycin 300mg three times a day for the next 5 days along with Omnicef 300mg twice a day for the next 10 days. He is to followup with us in the office next week. We have instructed and advised him to quit smoking to benefit wound healing as well as due to his COPD and Coronary artery disease. He has been advised to stay inside and keep the leg elevate. If signs or symptoms worsen he is to go to the emergency room. He is discharged today in stable condition. TIME SPENT: More than 60 minutes. MARYANNE
== END 2018-11-02 13:46 | disposition home or self-care (01) | DRG 605 ==
LOC: MEDSURG B 15:08
PROVIDERS: ADMIT Internal Medicine; ATTEND Internal Medicine
DX: S81.812A Laceration without foreign body, left lower leg, initial encounter (principal); I82.402 Acute embolism and thrombosis of unspecified deep veins of left lower extremity; I49.9 Cardiac arrhythmia, unspecified; I10 Essential (primary) hypertension; I73.9 Peripheral vascular disease, unspecified; E78.5 Hyperlipidemia, unspecified; J44.9 Chronic obstructive pulmonary disease, unspecified; E87.5 Hyperkalemia; M10.9 Gout, unspecified; E11.9 Type 2 diabetes mellitus without complications; N18.3 Chronic kidney disease, stage 3 (moderate); M19.90 Unspecified osteoarthritis, unspecified site; M25.551 Pain in right hip; Z72.0 Tobacco use
CPT/HCPCS: 36415; 80053; 81001; 82550; 84484; 85025; 85610; 87070; 93005; 93010

== ENCOUNTER 2019-01-17 12:26 | Inpatient (IN) ==
[2019-01-17 13:23] VITALS: BMI 21.5
[2019-01-17] MEDS ORDERED: VISTARIL INJ IM PRN (13:29)
[2019-01-17] MEDS ORDERED: NITROSTAT SL PRN (13:29)
[2019-01-17] MEDS ORDERED: TYLENOL PO PRN (13:29)
[2019-01-17] MEDS ORDERED: ATROPINE SULFATE PFS IVP PRN (13:29)
[2019-01-17] MEDS ORDERED: LASIX IVP STA (13:39)
[2019-01-17] MEDS ORDERED: PROAIR HFA IH PRN (13:41)
[2019-01-17] MEDS ORDERED: NON-FORMULARY MEDICATION (Digoxin [Digoxin] 0.125 MG) PO SCH (13:45)
[2019-01-17] MEDS ORDERED: LANOXIN PO SCH (13:47)
[2019-01-17] MEDS ORDERED: FLONASE NAS PRN (13:57)
[2019-01-17] MEDS: NORCO 7.5-325 PO PRN ×2 (14:05→22:15)
[2019-01-17] MEDS: LOVENOX SUBCUT SCH (14:05)
--- NOTE | 2019-01-17 16:15 | DI ---
Exam: Two views of the chest. Comparison: 10/30/2018. Reason for exam: DVT in the lower extremity. FINDINGS: No pneumothorax, pleural effusion, or focal consolidation. Parenchymal changes seen consi stent with chronic lung disease. The cardiac silhouette is not enlarged. Impression: No acute cardiopulmonary process in the setting of suspected chronic lung disease
[2019-01-18] MEDS ORDERED: ASPIRIN EC PO SCH (08:00)
--- NOTE | 2019-01-18 08:28 | PCM.PROG ---
Attending Provider: ATTENDING PROVIDER: Dr. LAUREN DELEON DATE OF SERVICE: 01/18/19 SUBJECTIVE: This 73 year old WHITE/ M was hospitalized 01/17/19 with DVT right lower extremity. The patient has DVT popliteal and femoral vein. History of DVT left lower leg which shows old DVT. Duration of symptoms three days. No shortness of breath. No chest pain or palpitations. REVIEW OF SYSTEMS: CONSTITUTIONAL: No night sweats. No fatigue, malaise, lethargy. No fever or chills. HEENT: Eyes: No visual changes. No eye pain. No eye discharge. ENT: No runny nose. No epistaxis. No sinus pain. No odynophagia. No congestion. RESPIRATORY: No cough, no congestion. No hemoptysis. No shortness of breath. CARDIOVASCULAR: No angina symptoms. No CHF symptoms, no symptoms of coronary insuffiiciency or pulmonary embolism. No atypical chest pain for CAD. No palpitations. No orthopnea.. GASTROINTESTINAL: No abdominal pain. No nausea or vomiting. No diarrhea or constipation. No hematemesis. No hematochezia. GENITOURINARY: No urgency. No frequency. No dysuria. No hematuria. No obstructive symptoms. No discharge. No pain. No significant abnormal bleeding. MUSCULOSKELETAL: No musculoskeletal pain; no joint swelling. NEUROLOGICAL: Awake, alert, oriented to time, place and person. No headache. No neck pain. No syncope. No seizures. No dizziness. PSYCHIATRIC: Not anxious. No depression. No suicidal thoughts. No homicidal thoughts. SKIN: No rash. Dermatitis left leg which is chronic with skin changes and laceration which has practically healed up. ENDOCRINE: No unexplained weight loss. No weight gain. HEMATOLOGIC/LYMPHATIC: No anemia. No purpura. No petechiae. No prolonged or excessive bleeding. No palpable lymph nodes. PHYSICAL EXAMINATION: GENERAL: The patient is awake, alert and oriented, lying/sitting in bed in no distress. VITAL SIGNS: Temperature 97.7 F, Pulse 70, Respiratory Rate 16, BP 136/71, Pulse Ox 95% on room air. HEENT: Head normocephalic, atraumatic. Eyes: Extraocular muscles are intact. Pupils are equal, round and reactive to light and accommodation. Ears: No lesions. Nose appeared normal. Throat: No exudate or erythema. NECK: Supple. No JVD, no carotid bruit. No lymphadenopathy or thyromegaly. LUNGS: Clear to auscultation. Percussion note normal. Chest symmetrical. HEART: S1, S2, no S3. No murmurs. No cyanosis or clubbing. No ascites. Pulses: Dorsalis pedis and posterior tibial pulses +1 to +2 both sides. ABDOMEN: Soft. Non-tender. Bowel sounds active. No CVA tenderness. No mass felt. EXTREMITIES: No edema. Full range of motion of all extremities, equal. Right lower extremity is alot better with swelling practically subsided of leg and thigh. NEUROLOGIC: No focal deficit. Cranial nerves II through XII are grossly intact. No headache, no double vision or headache. SKIN: Warm and dry. Intact. Turgor-normal. LYMPHATIC: No palpable lymph nodes/no lymphedema. MUSCULOSKELETAL: Normal joints with no swelling. Muscle tone is normal. LAB REVIEW: 01/18/19 05:06 01/18/19 05:06 01/18/19 05:06: Sodium 138.3, Potassium 4.36, Chloride 100.0, Carbon Dioxide 29.7, Anion Gap 12.96, BUN 37.6 H, Creatinine 1.48 H, Estimated GFR (MDRD) 47.00 , BUN/Creatinine Ratio 25.40, Glucose 142.7 H, Calcium 10.08, Total Bilirubin 1.06, AST 24.8, ALT 15.4, Alkaline Phosphatase 58.4, Total Protein 8.34 H, Albumin 4.71, Globulin 3.63, Albumin/Globulin Ratio 1.29 01/18/19 05:06: WBC 6.69, RBC 4.81, Hgb 14.0, Hct 43.2, MCV 89.8, MCH 29.1, MCHC 32.4, RDW Coeff of Rebeca 14.0, Plt Count 156, Immature Gran % (Auto) 0.4, Neut % (Auto) 55.5, Lymph % (Auto) 31.4, [place] % (Auto) 9.1, Eos % (Auto) 2.4, Baso % (Auto) 1.2, Immature Gran # (Auto) 0.0, Neut # (Auto) 3.7, Lymph # (Auto ) 2.1, [place] # (Auto) 0.6, Eos # (Auto) 0.2, Baso # (Auto) 0.1 01/18/19 05:06: PT 10.9, INR 1.12 01/17/19 21:40: Total Creatine Kinase 55.3, Troponin I < 0.012 01/17/19 15:10: Urine Color Yellow, Urine Clarity Clear, Urine pH 5.5, Ur Specific [place] 1.010, Urine Protein Negative, Urine Glucose (UA) Negative, Urine Ketones Negative, Urine Blood Negative, Urine Nitrite Negative, Urine Bilirubin Negative, Urine Urobilinogen 0.2, Ur Leukocyte Esterase Negative 01/17/19 13:50: PT 10.2, INR 1.04 01/17/19 13:50: Sodium 137.2, Potassium 5.31 H, Chloride 100.0, Carbon Dioxide 26.7, Anion Gap 15.81, BUN 35.1 H, Creatinine 1.51 H, Estimated GFR (MDRD) 46.00 , BUN/Creatinine Ratio 23.24, Glucose 144.8 H, Calcium 10.66 H, Total Bilirubin 1.41 H, AST 26.3, ALT 18.5, Alkaline Phosphatase 69.5, Total Creatine Kinase 62.3, Troponin I < 0.012, Total Protein 9.28 H, Albumin 5.21 H, Globulin 4.07, Albumin/Globulin Ratio 1.28 01/17/19 13:50: WBC 8.58, RBC 5.05, Hgb 14.7, Hct 45.2, MCV 89.5, MCH 29.1, MCHC 32.5, RDW Coeff of Rebeca 14.0, Plt Count 152, Immature Gran % (Auto) 0.6, Neut % (Auto) 74.6, Lymph % (Auto) 14.8, [place] % (Auto) 7.8, Eos % (Auto) 1.4, Baso % (Auto) 0.8, Immature Gran # (Auto) 0.1, Neut # (Auto) 6.4, Lymph # (Auto ) 1.3, [place] # (Auto) 0.7, Eos # (Auto) 0.1, Baso # (Auto) 0.1 ASSESSMENT: Please see below. 1. DVT right lower extremity seems to be responding to treatment with leg elevation and bed rest. 2. The patient is noncompliant of INR, advised to have INR done every four weeks. PLAN: 1. Coumadin 10 mg today and resume 5 mg thereafter. 2. Lotrisone cream twice a day. Plan and coordination of the patient's care discussed in the presence of Typing Element Machine Operator and nurse. CONDITION: Stable. SCRIBED BY: KAROLINE LIGHT Public Service Representative scribed while in presence of service performed by Dr. LAUREN DELEON on 01/18/19 ([id number])
[2019-01-18] MEDS ORDERED: MOMETASONE FUROATE NAS SCH (09:00)
[2019-01-18] MEDS ORDERED: LOTRISONE 45 GM TP SCH (09:00)
[2019-01-18] MEDS ORDERED: NON-FORMULARY MEDICATION (Metformin Hcl [Metformin Hcl] 1,000 MG) PO SCH (09:00)
[2019-01-18] MEDS: TRADJENTA PO SCH (09:17)
[2019-01-18] MEDS: PRAVACHOL PO SCH (09:18)
[2019-01-18] MEDS: GLUCOPHAGE PO SCH (09:19)
[2019-01-18] MEDS: ZESTRIL PO SCH (09:20)
[2019-01-18] MEDS: LOVENOX SUBCUT SCH (09:22)
[2019-01-18] MEDS: LOTRISONE 45 GM TP SCH ×2 (09:30→20:37)
[2019-01-18] MEDS: LANOXIN PO SCH (11:16)
[2019-01-18] MEDS: NORCO 7.5-325 PO PRN ×2 (11:44→20:35)
--- NOTE | 2019-01-18 13:34 | PN ---
DATE OF SERVICE: 01/18/19 SUBJECTIVE: The patient is going in and out to smoke. No listening to the bed rest. Strongly advised to quit smoking. The patient previously mentioned that he is on E-cig but he is smoking quite frequently. Risk factors for DVT discussed.The patient is noncompliant in taking his Coumadin, his level was 1.1 INR on admission. He is going to get 10mg today. PROGNOSIS: Guarded. TIME SPENT: More than 30 minutes. Plan and coordination of the patient's care discussed in the presence of nurse. MARYANNE
[2019-01-18] MEDS ORDERED: COUMADIN PO ONE (17:00)
[2019-01-19] MEDS: ZESTRIL PO SCH (08:01)
[2019-01-19] MEDS: TRADJENTA PO SCH (08:01)
[2019-01-19] MEDS: GLUCOPHAGE PO SCH (08:01)
[2019-01-19] MEDS: LANOXIN PO SCH (08:01)
[2019-01-19] MEDS: PRAVACHOL PO SCH (08:01)
[2019-01-19] MEDS: LOVENOX SUBCUT SCH (08:03)
[2019-01-19] MEDS: LOTRISONE 45 GM TP SCH ×2 (08:08→20:15)
[2019-01-19] MEDS: NORCO 7.5-325 PO PRN ×2 (11:11→22:24)
[2019-01-19] MEDS: COUMADIN PO SCH (17:03)
[2019-01-19] MEDS: PROAIR HFA IH PRN (17:29)
[2019-01-20] MEDS: TRADJENTA PO SCH (08:22)
[2019-01-20] MEDS: GLUCOPHAGE PO SCH (08:23)
[2019-01-20] MEDS: ZESTRIL PO SCH (08:23)
[2019-01-20] MEDS: LOVENOX SUBCUT SCH (08:23)
[2019-01-20] MEDS: PRAVACHOL PO SCH (08:23)
[2019-01-20] MEDS: LOTRISONE 45 GM TP SCH ×2 (08:27→20:12)
[2019-01-20] MEDS: COUMADIN PO SCH (17:19)
[2019-01-21] MEDS: PROAIR HFA IH PRN (05:32)
[2019-01-21 05:34] VITALS: BP 134/64; TEMP 97.6
--- NOTE | 2019-01-21 08:11 | PCM.PROG ---
Attending Provider: ATTENDING PROVIDER: Dr. LAUREN DELEON DATE OF SERVICE: 01/21/19 SUBJECTIVE: This 73 year old WHITE/ M was hospitalized 01/17/19 with DVT of the right lower extremity. Clinically it seems to have revolved with no swelling and no tightness of the right calf. The left lower extremity has dark pigmentation from chronic edema and laceration he has had in the past. REVIEW OF SYSTEMS: CONSTITUTIONAL: No night sweats. No fatigue, malaise, lethargy. No fever or chills. HEENT: Eyes: No visual changes. No eye pain. No eye discharge. ENT: No runny nose. No epistaxis. No sinus pain. No odynophagia. No congestion. RESPIRATORY: No cough, no congestion. No hemoptysis. No shortness of breath. CARDIOVASCULAR: No angina symptoms. No CHF symptoms. No atypical chest pain for CAD. No palpitations. No orthopnea.. GASTROINTESTINAL: No abdominal pain. No nausea or vomiting. No diarrhea or constipation. No hematemesis. No hematochezia. GENITOURINARY: No urgency. No frequency. No dysuria. No hematuria. No obstructive symptoms. No discharge. No pain. No significant abnormal bleeding. MUSCULOSKELETAL: No musculoskeletal pain; no joint swelling. NEUROLOGICAL: Awake, alert, oriented to time, place and person. No headache. No neck pain. No syncope. No seizures. No dizziness. PSYCHIATRIC: Not anxious. No depression. No suicidal thoughts. No homicidal thoughts. SKIN: No rash. No lesions. No wounds. ENDOCRINE: No unexplained weight loss. No weight gain. HEMATOLOGIC/LYMPHATIC: No anemia. No purpura. No petechiae. No prolonged or excessive bleeding. No palpable lymph nodes. PHYSICAL EXAMINATION: GENERAL: The patient is awake, alert and oriented,sitting in bed in no distress. VITAL SIGNS: Temperature 97.6 F, Pulse 65, Respiratory Rate 20, BP 134/64, Pulse Ox 94% HEENT: Head normocephalic, atraumatic. Eyes: Extraocular muscles are intact. Pupils are equal, round and reactive to light and accommodation. Ears: No lesions. Nose appeared normal. Throat: No exudate or erythema. NECK: Supple. No JVD, no carotid bruit. No lymphadenopathy or thyromegaly. LUNGS: Clear to auscultation. Percussion note normal. Chest symmetrical. HEART: S1, S2, no S3. No murmurs. No cyanosis or clubbing. No ascites. Pulses: Dorsalis pedis and posterior tibial pulses +1 to +2 both sides. ABDOMEN: Soft. Non-tender. Bowel sounds active. No CVA tenderness. No mass felt. EXTREMITIES: No edema. Right lower extremity is practically normal. Full range of motion of all extremities, equal. NEUROLOGIC: No focal deficit. Cranial nerves II through XII are grossly intact. No headache, no double vision or headache. SKIN: Warm and dry. Intact. Turgor-normal. LYMPHATIC: No palpable lymph nodes/no lymphedema. MUSCULOSKELETAL: Normal joints with no swelling. Muscle tone is normal. LAB REVIEW: 01/21/19 04:47 01/21/19 04:47 01/21/19 04:47: Sodium 140.1, Potassium 4.49, Chloride 104.5, Carbon Dioxide 29.1, Anion Gap 10.99, BUN 43.0 H, Creatinine 1.31 H, Estimated GFR (MDRD) 54.00 , BUN/Creatinine Ratio 32.82, Glucose 143.1 H, Calcium 10.09, Total Bilirubin 0.75, AST 46.0, ALT 30.6, Alkaline Phosphatase 52.9 L, Total Protein 7.98, Albumin 4.51, Globulin 3.47, Albumin/Globulin Ratio 1.29 01/21/19 04:47: PT 12.9 H, INR 1.34 01/21/19 04:47: WBC 6.72, RBC 4.87, Hgb 14.0, Hct 43.9, MCV 90.1, MCH 28.7, MCHC 31.9, RDW Coeff of Rebeca 13.8, Plt Count 163, Immature Gran % (Auto) 0.3, Neut % (Auto) 60.3, Lymph % (Auto) 26.9, [place] % (Auto) 8.6, Eos % (Auto) 2.7, Baso % (Auto) 1.2, Immature Gran # (Auto) 0.0, Neut # (Auto) 4.1, Lymph # (Auto ) 1.8, [place] # (Auto) 0.6, Eos # (Auto) 0.2, Baso # (Auto) 0.1 ASSESSMENT: Please see below. 1. DVT, right lower extremity PLAN: 1. 10mg Coumadin today 2. Continue 5mg of Coumadin at home 3. Ultrasound of kidney with Doppler 4. PFT 5. ECHO 6. Lovenox today before he goes home. Plan and coordination of the patient's care discussed in the presence of Product Assurance Engineer and nurse. CONDITION: Stable SCRIBED BY: Nasim TREJO scribed while in presence of service performed by Dr. LAUREN DELEON on 01/21/19 ([id number])
--- NOTE | 2019-01-21 08:35 | DS ---
DATE OF SERVICE: 01/21/19 FINAL DIAGNOSIS: 1. DVT, RLE 2. CHRONIC NON-OCCLUSIVE DVT LEFT FEMORAL (ON COUMADIN) 3. IRREGULAR HEART RATE 4. HYPERTENSION 5. PERIPHERAL ARTERIAL DISEASE 6. DYSLIPIDEMIA 7. COPD 8. EMPHYSEMA 9. ASTHMA 10.GOUT, RIGHT GREAT TOE 11.DIABETES MELLITUS TYPE 2 (A1C 6.6 March,) 12.CHRONIC KIDNEY DISEASE STAGE 3 13.OSTEOARTHRITIS 14.DEGENERATIVE JOINT DISEASE 15.NON COMPLIANT WITH MEDICATIONS, F/U AND LIFESTYLE 16.CURRENT SMOKER 17.AAA, 1997 18.CATARACT EXTRACTION, 2017 LAST VITALS: Temp Pulse Resp BP Pulse Ox 97.6 F 65 20 134/64 94 L 01/21/19 05:31 01/21/19 05:31 01/21/19 05:31 01/21/19 05:31 01/21/19 05:31 DISCHARGE INSTRUCTIONS: DISCHARGE HOME. CONTINUE MEDICATIONS LISTED ON NURSING DISCHARGE INFORMATION SHEET. TAKE COUMADIN 10 MG TONIGHT AND THEN RESUME COUMADIN 5 MG EVERY NIGHT ( START ON MONDAY). AN APPOINTMENT IS SCHEDULED WITH DR. DELEON/SATYA العراقي APRN ON January AT NOON. INR WILL BE CHECKED IN THE OFFICE. TAKE THESE MEDICATIONS AT HOME: Hydrocodone Bitart/Acetaminophen ([place] 7.5-325) 1 tab PO Q8HR PRN Albuterol Sulfate (Proair Hfa) 2 puff IH BID PRN Clotrimazole (Lotrisone 45 Gm) 1 applic TP DAILY [facility] Digoxin (Lanoxin) 125 mcg PO MoTuWeThFrSa [facility] Mometasone Furoate (Nasonex) 2 spray COLLINS DAILY PRN Tradjenta 5 mg PO DAILY DEL Lisinopril (Zestril) 5 mg PO DAILY [facility] Metformin HCl (Glucophage) 1,000 mg PO DAILYWM [facility] Pravastatin Sodium (Pravachol) 40 mg PO DAILY [facility] Warfarin Sodium (Coumadin) 5 mg PO QPM [facility] ALLERGIES: No Known Allergies Allergy (Uncoded 10/11/13 08:24) NEW PRESCRIPTIONS: NONE SMOKING: ADVISED TO STOP SMOKING DISEASE SPECIFIC EDUCATION: SMOKING CESSATION MEDICATIONS; IMPORTANCE OF TAKING COUMADIN REGULARLY APPOINTMENT DIET: CONSISTENT CARBOHYDRATES ACTIVITY: GRADUALLY RESUME TOLERATED ELEVATE RIGHT LOWER EXTREMITY WHEN SITTING HOSPITAL COURSE: 73 year old white male hospitalized with right lower extremity DVT involving femoral and popliteal veins with no evidence of pulmonary embolism, no chest pain and no palpitations. The patient had swelling plus +2 as well non pitting for three days prior to hospitalization. The patient was treated with Lovenox and leg elevation and IV Lasix. Coumadin was continued. The patient's INR was 1.1 practically normal. The patient has been noncompliant of followup on INR and also hasn't been taking his Coumadin. He admitted to that. He was strongly advised to take his Coumadin on regular basis. Also explained about the risk factors for DVT. He has continued to smoking in fact he continued to smoke throughout the stay in the hospital, going out very frequently. The patient is noncompliant of diet, medications, recommendations and lifestyle. His prognosis for having recurrent DVT is quite high. Besides that he was explained about the complications of DVT likely pulmonary embolism etc. His echo showed normal LV contractility with borderline enlargement of the LA cavity, normal LV contractility is right side of the heart was enlarged from chronic lung disease. He was counseled for smoking. The patient has chronic kidney disease and he was advised not to take any nonsteroidal anti-inflammatory. He declined to have evaluation by [employer] for his chronic kidney disease. The patient' s condition at the time of discharge is stable. The patient has been up and about. The patient is to undergo Ultrasound of the kidney with flow studies. PFT pending. Oxygen saturation over 90% in the hospital. PROGNOSIS: GUARDED TIME SPENT: More than 60 minutes. MTDD
[2019-01-21] MEDS: NORCO 7.5-325 PO PRN (09:37)
[2019-01-21] MEDS: TRADJENTA PO SCH (10:48)
[2019-01-21] MEDS: LANOXIN PO SCH (10:48)
[2019-01-21] MEDS: GLUCOPHAGE PO SCH (10:48)
[2019-01-21] MEDS: LOVENOX SUBCUT SCH (10:50)
[2019-01-21] MEDS: LOTRISONE 45 GM TP SCH (11:02)
[2019-01-21] MEDS: ZESTRIL PO SCH (11:02)
[2019-01-21] MEDS: PRAVACHOL PO SCH (11:02)
--- NOTE | 2019-01-21 11:20 | US ---
EXAM: RENAL ULTRASOUND, BILATERAL HISTORY: Elevated renal function labs FINDINGS: Ultrasound renal, bilateral. Pappas-scale ultrasound and color Doppler imaging was performe d. The right kidney measures 10.1 x 4.5 x 4.7 centimeters. The left kidney measures 11.2 x 5.4 x 5.2 centimeters. General cortical echogenicity and volume are normal for age. No solid or cystic cortical masses. No hydronephrosis is identified. Urinary bladder was relatively decompressed and not optimally evaluated although grossly unremarkable . IMPRESSION: 1. Findings within normal limits sonographically.
--- NOTE | 2019-01-21 11:20 | US ---
EXAM: Renal artery Doppler ultrasound. HISTORY: Elevated labs COMPARISON: None TECHNIQUE: Renal artery Doppler ultrasound was performed. Duplex imaging was performed with color, love-scale and Doppler imaging. FINDINGS: Aorta is obscured secondary to bowel gas shadowing. The right kidney measures 9.9 cm in length. No hydronephrosis. Peak systolic velocities in the main renal artery at the ostium, midportion, and renal hilum are not visualized, 0.5, and 0.4 cm/sec resp ectively. These values are normal at the visualized levels. Doppler wave forms are normal. The arc uate artery resistive index measures 0.71. This value is normal. Right renal vein is patent. The left kidney measures 11.6 cm in length. No hydronephrosis. Peak systolic velocities in the main renal artery at the ostium, midportion, and renal hilum are not visualized , 0.9 , and 0.4 cm/sec re spectively. These values are normal at the visualized levels. Doppler wave forms are normal. The a rcuate artery resistive index measures 0.69. This value is normal. Left renal vein is patent. IMPRESSION: Proximal renal arteries are obscured bilaterally. Renal artery stenosis cannot be excluded. Normal renal artery velocities in the mid portion and at the hilum.
--- NOTE | 2019-01-21 11:37 | CM.DICTOOL ---
ADMISSION: 01/17/19 12:26 DISCHARGE: JANUARY 21, 2019 DATE OF SERVICE: 01/21/19 FINAL DIAGNOSIS DVT, RLE CHRONIC NON-OCCLUSIVE DVT LEFT FEMORAL (ON COUMADIN) IRREGULAR HEART RATE HYPERTENSION PERIPHERAL ARTERIAL DISEASE DYSLIPIDEMIA COPD EMPHYSEMA ASTHMA GOUT, RIGHT GREAT TOE DIABETES MELLITUS TYPE 2 (A1C 6.6 March,) CHRONIC KIDNEY DISEASE STAGE 3 OSTEOARTHRITIS DEGENERATIVE JOINT DISEASE NON COMPLIANT WITH MEDICATIONS, F/U AND LIFESTYLE CURRENT SMOKER AAA, 1997 CATARACT EXTRACTION, 2018 LAST VITALS Temp Pulse Resp BP Pulse Ox 97.6 F 65 20 134/64 94 L 01/21/19 05:31 01/21/19 05:31 01/21/19 05:31 01/21/19 05:31 01/21/19 05:31 TAKE THESE MEDICATIONS AT HOME Hydrocodone Bitart/Acetaminophen ([place] 7.5-325) 1 tab PO Q8HR PRN PRN Reason: Pain Last Admin: 01/21/19 09:37 Dose: 1 tab Albuterol Sulfate (Proair Hfa) 2 puff IH BID PRN PRN Reason: SOB Last Admin: 01/21/19 05:32 Dose: 2 puff Clotrimazole (Lotrisone 45 Gm) 1 applic TP DAILY [facility] Last Admin: 01/20/19 20:12 Dose: 1 applic Digoxin (Lanoxin) 125 mcg PO MoTuWeThFrSa [facility] Last Admin: 01/19/19 08:01 Dose: 125 mcg Mometasone Furoate (Nasonex) 2 spray COLLINS DAILY PRN PRN Reason: ALLERGIES Tradjenta 5 mg PO DAILY [facility] Last Admin: 01/20/19 08:22 Dose: 5 mg Lisinopril (Zestril) 5 mg PO DAILY [facility] Last Admin: 01/20/19 08:23 Dose: 5 mg Metformin HCl (Glucophage) 1,000 mg PO DAILYWM [facility] Last Admin: 01/20/19 08:23 Dose: 1,000 mg Pravastatin Sodium (Pravachol) 40 mg PO DAILY [facility] Last Admin: 01/20/19 08:23 Dose: 40 mg Warfarin Sodium (Coumadin) 5 mg PO QPM [facility] Last Admin: 01/20/19 17:19 Dose: 5 mg ALLERGIES No Known Allergies Allergy (Uncoded 10/11/13 08:24) DISCONTINUED MEDICATIONS NEW PRESCRIPTIONS: NONE SMOKING: ADVISED TO STOP SMOKING DISEASE SPECIFIC EDUCATION: SMOKING CESSATION MEDICATIONS; IMPORTANCE OF TAKING COUMADIN REGULARLY APPOINTMENT LAB REVIEW: 01/21/19 04:47 01/21/19 04:47 01/21/19 04:47: Sodium 140.1, Potassium 4.49, Chloride 104.5, Carbon Dioxide 29.1, Anion Gap 10.99, BUN 43.0 H, Creatinine 1.31 H, Estimated GFR (MDRD) 54.00 , BUN/Creatinine Ratio 32.82, Glucose 143.1 H, Calcium 10.09, Total Bilirubin 0.75, AST 46.0, ALT 30.6, Alkaline Phosphatase 52.9 L, Total Protein 7.98, Albumin 4.51, Globulin 3.47, Albumin/Globulin Ratio 1.29 01/21/19 04:47: PT 12.9 H, INR 1.34 01/21/19 04:47: WBC 6.72, RBC 4.87, Hgb 14.0, Hct 43.9, MCV 90.1, MCH 28.7, MCHC 31.9, RDW Coeff of Rebeca 13.8, Plt Count 163, Immature Gran % (Auto) 0.3, Neut % (Auto) 60.3, Lymph % (Auto) 26.9, Martin % (Auto) 8.6, Eos % (Auto) 2.7, Baso % (Auto) 1.2, Immature Gran # (Auto) 0.0, Neut # (Auto) 4.1, Lymph # (Auto ) 1.8, Martin # (Auto) 0.6, Eos # (Auto) 0.2, Baso # (Auto) 0.1 PLAN: DISCHARGE HOME DIET: CONSISTENT CARBOHYDRATES ACTIVITY: GRADUALLY RESUME TOLERATED ELEVATE RIGHT LOWER EXTREMITY WHEN SITTING CONTINUE MEDICATIONS LISTED ON NURSING DISCHARGE INFORMATION SHEET TAKE COUMADIN 10 MG TONIGHT AND THEN RESUME COUMADIN 5 MG EVERY NIGHT (START ON MONDAY) AN APPOINTMENT IS SCHEDULED WITH DR. DELEON/SATYA العراقي APRN ON January AT NOON. INR WILL BE CHECKED IN THE OFFICE MR. YUAN IS ALERT AND ORIENTED X 3. MR. YUAN IS AND HE LIVES AT HOME WITH HIS CHILDREN. HE IS INDEPENDENT WITH ACTIVITES OF DAILY LIVING AND DOES NOT UTILIZE ANY TYPE OF ASSISTIVE DEVICE WITH TRANSFERS OR AMBULATION. HE REPORTS HE HAS CRUTCHES AT HOME IF NEEDED. MEAL INTAKES ARE GOOD WITH APPETITE AT 100%. HE DENIES ABDOMINAL PAIN OR NAUSEA. ACCU-CHECK READINGS RANGED FROM 103 TO 206 FOR YESTERDAY. BLOOD SUGAR TODAY AT 143. MR. YUAN IS CONTINENT OF BOWEL AND BLADDER. SKIN IS INTACT EXCEPT FOR A SCABBED AREA TO THE LEFT LOWER EXTREMITY. MD SATYA BERMUDEZ, [employer] SECURITY ARCHITECT
--- NOTE | 2019-01-22 09:32 | ECHO2D ---
Date of Exam: 01/21/19 Ordering Physician: DR. LAUREN DELEON Room #: 119 Reason for Echo: SOB, COPD M-Mode Normal Adult Results LV Dimensions Normal Adult Results AoV Opening excursions >1.6 >1.6 LVEDD-base- 3.5-5.8 4.5 Ao root dimensions 2.0-3.7 4.1 LVESD-base- 3.1-4.6 L. Atrium dimensions 1.9-3.8 4.1 Post. Wall thickness 0.8-1.1 1.1 IV septum (thickness) 0.7-1.2 1.1 Post. Wall excursion 0.72-1.3 NORMAL Septal motion NORMAL Systolic motion R. Ventricular cavity 1.5-2.0 3.0 LVEF 60% 60% Paradoxical septal wall motion NORMAL 2-D : 2-D M Mode Echocardiogram was performed using apical four chamber and left parasternal long and short axis views. Mitral, tricuspid and aortic valves appear to be normal. Contractility of the left ventricle seems to be normal, so is the cavity size. MILDLY ENLARGED LEFT ATRIAL CAVITY AND RIGHT CAVITY. Aortic root appears to be normal. There is no pericardial effusion. There is no thrombus noted in the left ventricular or left aortic cavity. No mitral valve prolapse noted. M-MODE: MV: NORMAL AV: NORMAL TV: NORMAL PV: CHAMBER SIZE: ENLARGED LEFT ATRIAL AND RIGHT VENTRICLE CAVITIES WALL MOTION: NORMAL PERICARDIUM: NORMAL INTERPRETATION: 1. MILDLY DILATED AORTIC ROOT 2. ENLARGED LEFT ATRIAL AND RIGHT VENTRICLE CAVITIES 3. NORMAL LEFT VENTRICULAR CONTRACTILITY 4. NORMAL VALVES MTDD
--- NOTE | 2019-01-23 11:20 | PN ---
DATE OF SERVICE: 01/19/19 SUBJECTIVE: The patient is doing well, he wants to go home. During the night time he continued to go out and smoke. REVIEW OF SYSTEMS: CONSTITUTIONAL: No night sweats. No fatigue, malaise, lethargy. No fever or chills. HEENT: Eyes: No visual changes. No eye pain. No eye discharge. ENT: No runny nose. No epistaxis. No sinus pain. No sore throat. No odynophagia. No congestion. RESPIRATORY: No cough, no congestion. No hemoptysis. No shortness of breath. CARDIOVASCULAR: No angina symptoms. No CHF symptoms. No atypical chest pain for CAD. No palpitations. No PND. No orthopnea. GASTROINTESTINAL: No abdominal pain. No nausea or vomiting. No diarrhea or constipation. No hematemesis. No hematochezia. GENITOURINARY: No urgency. No frequency. No dysuria. No hematuria. No obstructive symptoms. No discharge. No pain. No significant abnormal bleeding. MUSCULOSKELETAL: No musculoskeletal pain; no joint swelling. NEUROLOGICAL: No headache. No neck pain. No syncope. No seizures. No dizziness. PSYCHIATRIC: Not anxious. No depression. No suicidal thoughts. No homicidal thoughts. SKIN: No rash. No lesions. No wounds. ENDOCRINE: No unexplained weight loss. No weight gain. HEMATOLOGIC/LYMPHATIC: No anemia. No purpura. No petechiae. No prolonged or excessive bleeding. No palpable lymph nodes. PHYSICAL EXAMINATION: GENERAL: The patient is oriented to time, place and person. HEENT: Head normocephalic, atraumatic. Eyes: Extraocular muscles are intact. Pupils are equal, round and reactive to light and accommodation. Ears: No lesions. Nose appeared normal. Throat: No exudate or erythema. NECK: Supple. No JVD, no carotid bruit. No lymphadenopathy or thyromegaly. LUNGS: Clear to auscultation. Percussion note normal. Chest symmetrical. HEART: S1, S2, no S3. No murmurs. No cyanosis or clubbing. No ascites. Pulses: Dorsalis pedis and posterior tibial pulses +1 to +2 bilaterally. ABDOMEN: Soft. Nontender. Bowel sounds active. No CVA tenderness. No mass felt. EXTREMITIES: No edema. Full range of motion of all extremities, equal. Right lower extremity practically has no swelling, no tightness of calf muscles or right thigh. No red streaks. The same except for pigmentation on the left leg. The left lower extremity is also feeling normal. NEUROLOGIC: No focal deficit. Cranial nerves II through XII are grossly intact. No headache, no double vision or headache. SKIN: Not dry. Intact. Turgor - normal. LYMPHATIC: No palpable lymph nodes/no lymphedema. MUSCULOSKELETAL: Normal joints with no swelling. Muscle tone is normal. PLAN: 1. The patient again advised to quite smoking. 2. Advised to take his Coumadin regular basis 3. The patient is on Lovenox and Coumadin, INR pending 4. Again I explained to him that Dr. Wood would be following him in my absence and I will be back Monday afternoon and he agreed. 5. The patient is strongly advised to keep the legs up and rest. CONDITION: Stable. TIME SPENT: More than 30 minutes. Plan and coordination of the patient's care discussed in the presence of nurse. MARYANNE
--- NOTE | 2019-01-23 11:31 | PN ---
DATE OF SERVICE: 01/20/19 SUBJECTIVE: 73 year old white male hospitalized with DVT, right lower extremity. The patient 's condition has improved. He is up and about. At present time he is gone to smoke outside. The patient has been going frequently and smoking. The patient has been strongly advised not to smoke. Risk factors for DVT discussed with him. The patient hasn't been taking his Coumadin regularly. On admission his INR was 1.1. He hasn't been showing up for INR check up either. He has been advised to come frequently for weekly and as needed. The patient is intelligent. The patient has history of recurrent DVT. REVIEW OF SYSTEMS: CONSTITUTIONAL: No night sweats. No fatigue, malaise, lethargy. No fever or chills. HEENT: Eyes: No visual changes. No eye pain. No eye discharge. ENT: No runny nose. No epistaxis. No sinus pain. No sore throat. No odynophagia. No congestion. RESPIRATORY: No cough, no congestion. No hemoptysis. No shortness of breath. CARDIOVASCULAR: No angina symptoms. No CHF symptoms. No atypical chest pain for CAD. No palpitations. No PND. No orthopnea. GASTROINTESTINAL: No abdominal pain. No nausea or vomiting. No diarrhea or constipation. No hematemesis. No hematochezia. GENITOURINARY: No urgency. No frequency. No dysuria. No hematuria. No obstructive symptoms. No discharge. No pain. No significant abnormal bleeding. MUSCULOSKELETAL: No musculoskeletal pain; no joint swelling. NEUROLOGICAL: No headache. No neck pain. No syncope. No seizures. No dizziness. PSYCHIATRIC: Not anxious. No depression. No suicidal thoughts. No homicidal thoughts. SKIN: No rash. No lesions. No wounds. ENDOCRINE: No unexplained weight loss. No weight gain. HEMATOLOGIC/LYMPHATIC: No anemia. No purpura. No petechiae. No prolonged or excessive bleeding. No palpable lymph nodes. PHYSICAL EXAMINATION: VITAL SIGNS: Stable HEENT: Head normocephalic, atraumatic. Eyes: Extraocular muscles are intact. Pupils are equal, round and reactive to light and accommodation. Ears: No lesions. Nose appeared normal. Throat: No exudate or erythema. NECK: Supple. No JVD, no carotid bruit. No lymphadenopathy or thyromegaly. LUNGS: Clear to auscultation. Percussion note normal. Chest symmetrical. HEART: S1, S2, no S3. No murmurs. No cyanosis or clubbing. No ascites. Pulses: Dorsalis pedis and posterior tibial pulses +1 to +2 bilaterally. ABDOMEN: Soft. Nontender. Bowel sounds active. No CVA tenderness. No mass felt. EXTREMITIES: No edema. Full range of motion of all extremities, equal. Right lower extremity swelling practically has subsided and the calf muscles are practically normal. The right thigh is normal. Left lower extremity is as as before NEUROLOGIC: No focal deficit. Cranial nerves II through XII are grossly intact. No headache, no double vision or headache. SKIN: Not dry. Intact. Turgor - normal. LYMPHATIC: No palpable lymph nodes/no lymphedema. MUSCULOSKELETAL: Normal joints with no swelling. Muscle tone is normal. LABS: Hgb 13.7, hct 43, WBC 6,600 normal differential, creatinine 1.5, BUN 52, potassium 4.4 ASSESSMENT: 1. Right lower extremity DVT seems to be clinically subsiding. PLAN: 1. Continue Lovenox, INR now is 1.35, continue 5mg 2. The patient's kidney functions are normal, we will further look into it. TIME SPENT: More than 30 minutes. Plan and coordination of the patient's care discussed in the presence of nurse. MARYANNE
--- NOTE | 2019-01-23 11:51 | PN ---
01/17/19: Level 5 01/18/19: Intermediate 01/19/19: Intermediate 01/20/19: Intermediate 01/21/19: D as in discharge MTDD
== END 2019-01-21 13:11 | disposition home or self-care (01) | DRG 301 ==
LOC: MEDSURG B 12:26
PROVIDERS: ADMIT Internal Medicine; ATTEND Internal Medicine
DX: I82.401 Acute embolism and thrombosis of unspecified deep veins of right lower extremity (principal); I49.9 Cardiac arrhythmia, unspecified; I10 Essential (primary) hypertension; I73.9 Peripheral vascular disease, unspecified; E78.5 Hyperlipidemia, unspecified; E11.9 Type 2 diabetes mellitus without complications; J44.9 Chronic obstructive pulmonary disease, unspecified; J43.9 Emphysema, unspecified; J45.909 Unspecified asthma, uncomplicated; M10.9 Gout, unspecified; M19.90 Unspecified osteoarthritis, unspecified site; N18.3 Chronic kidney disease, stage 3 (moderate); Z91.14 Patient's other noncompliance with medication regimen; Z72.0 Tobacco use
CPT/HCPCS: 36415; 80053; 80162; 81001; 82550; 82962; 84484; 85025; 85610; 87070; 87081; 93005; 93010